=== PATIENT | female | born 1995 | race Two or more races ===

== ENCOUNTER 2018-09-12 23:52 | Emergency (ER) | payer OTHER ==
[2018-09-13 00:07] VITALS: BP 116/79; PULSE 85; TEMP 97.9; BMI 31.8
[2018-09-13] MEDS ORDERED: IBUPROFEN 400 MG TABLET (FP) PO ONE ×2 (00:35→01:02)
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
== END 2018-09-13 02:10 | disposition home or self-care (01) ==
LOC: JER 23:52
DX: S49.82XA Other specified injuries of left shoulder and upper arm, initial encounter (principal); M25.512 Pain in left shoulder; V43.52XA Car driver injured in collision with other type car in traffic accident, initial encounter; Y92.414 Local residential or business street as the place of occurrence of the external cause; Y93.89 Activity, other specified; Y99.8 Other external cause status
CPT/HCPCS: 73000-TC-LT-FY; 73030-TC-LT-FY; 84703; 99283-25